=== PATIENT | female | born 1980 | race Caucasian/White ===

== ENCOUNTER → 2017-01-05 | Outpatient (CLI) | payer BC ==
[2006-04-26 07:22] VITALS: TEMP 98
[~2017-01-05] MED LIST: PRENATAL VITAMI1 TA5 PO
== END ==
LOC: MC.RAD 07:30
DX: N63 Unspecified lump in breast (principal)

== ENCOUNTER → 2018-03-27 | Outpatient (CLI) | payer BC ==
[2006-04-26 07:22] VITALS: TEMP 98
== END ==
LOC: MC.RAD 09:46
DX: Z12.31 Encounter for screening mammogram for malignant neoplasm of breast (principal)

== ENCOUNTER → 2019-06-07 | Outpatient (CLI) | payer BC ==
[2006-04-26 07:22] VITALS: TEMP 98
== END ==
LOC: MC.RAD 08:36
DX: Z12.31 Encounter for screening mammogram for malignant neoplasm of breast (principal)

== ENCOUNTER → 2020-08-19 | Outpatient (CLI) | payer BC ==
[2006-04-26 07:22] VITALS: TEMP 98
== END ==
LOC: MC.RAD 13:18
DX: Z12.31 Encounter for screening mammogram for malignant neoplasm of breast (principal)

== ENCOUNTER → 2024-02-07 | Outpatient (CLI) | payer BC ==
[2006-04-26 07:22] VITALS: TEMP 98
== END ==
LOC: MC.RAD 07:12
DX: Z12.31 Encounter for screening mammogram for malignant neoplasm of breast (principal); N63.10 Unspecified lump in the right breast, unspecified quadrant